=== PATIENT | female | born 1960 | race African-American/Black ===

== ENCOUNTER → 2017-01-28 | Outpatient (CLI) | payer MEDICARE ==
[~2017-01-28] MED LIST: AMLODIPINE BESYL5 MG PO; BRISDELLE7.5 MG PO; LINZESS145 MCG PO; LINZESS290 MCG PO; MIRALAX17 G2 PO; MOBIC PO; NEURONTIN100 MG PO; OMEPRAZOLE20 M1 PO; OMEPRAZOLE40 MG PO; SENNA LAXATIVE25 MG PO
--- NOTE | ~2017-01-28 | ST ---
Unit #: [id number] #: [id number] Patient: JOSÉ MIGUEL BETTENCOURT [id number] [address] [address] [id number] O MR#: [id number] NAME: JOSÉ MIGUEL BETTENCOURT : 1960 SEX: F STUDY DATE/TIME: 02/02/2017 UNIT: CE ROOM: STUDY DESCRIPTION: Attending Physician: Margaret Restrepo M.D. Referring Physician: Margaret Restrepo M.D. Primary Care Physician: Margaret Restrepo M.D. CARDIOLOGY REPORT Baseline electrocardiogram showed normal sinus rhythm and nonspecific ST segment changes. The patient attempted to walk but the test was stopped because of severe low-back pain. A Lexiscan Cardiolite study would be attempted. Dictated by... Joanna Gaxiola TD: 02/02/2017 15:56 JOB #: [id number] CARDIOLOGY REPORT Page 1 of 1 X Ankur Ruiz MD CARDIOLOGY REPORT
== END | disposition home or self-care (01) ==
LOC: CEKG 09:39
DX: R94.31 Abnormal electrocardiogram [ECG] [EKG] (principal)
CPT/HCPCS: 93017